=== PATIENT | male | born 1980 | race Caucasian/White ===

== ENCOUNTER → 2019-09-24 | Outpatient (CLI) | payer OTHER ==
[~2019-09-24] MED LIST: AZIT250 PO; CEPH500 PO; CLIN300 PO; CRUTCH4 USE; Colace100 MG PO; Crutch1 EACH MISC; DOXY100T53 PO; Flonase 0.05% N16 GM; HYDACE25S PR; HYDACE5 PO; HYDCOR2.5C PR; IBUP600 PO; LORA10 PO; MONT10T; MUPI2TO TOP; NAPR375 PO; NAPR500 PO; Nix Lice Treatm59 ML TOP; Norco 5-325 Ta1 EACH PO; PROM25 PO; RXANTBENOT AS; RXCEPH500 PO; RXCLIN PO; RXHYDACE PO; SULTRIDS PO; Sudogest30 MG PO
== END | disposition home or self-care (01) ==
LOC: LAB EV 16:44 → LAB SHORT 16:44
DX: L08.9 Local infection of the skin and subcutaneous tissue, unspecified (principal)
CPT/HCPCS: 87070; 87075; 87205

== ENCOUNTER 2021-01-11 23:05 | Emergency (ER) | payer OTHER ==
[~2021-01-11] VITALS: Ht 177.8 cm; Wt 81.7 kg
== END 2021-01-12 00:08 | disposition home or self-care (01) ==
LOC: ER 23:05
DX: Z02.89 Encounter for other administrative examinations (principal); F17.210 Nicotine dependence, cigarettes, uncomplicated; Z88.0 Allergy status to penicillin
CPT/HCPCS: 99283

== ENCOUNTER → 2025-01-12 | Outpatient (CLI) | payer OTHER ==
[2025-01-15 13:49] LABS: APTIMA MEDIA TYPE Urine; C. TRACHOMATIS BY TMA Negative (Negative); N. GONORRHOEAE BY TMA Negative (Negative); T. VAGINALIS BY TMA Negative (Negative)
[2025-01-15 15:47] LABS: HIV 1,2 COMBO ANTIGEN/ANTIBODY Negative (Negative)
[2025-01-15 17:00] LABS: HEPATITIS A ANTIBODY, IGM Negative (Negative); HEPATITIS C AB CIA INTERP High Pos (Negative); HEPATITIS C ANTIBODY CIA INDEX >11.00 IV
[2025-01-16 19:35] LABS: HCV QNT BY NAAT (IU/ML) Not Detected; HCV QNT BY NAAT (LOG IU/ML) Not Detected; HCV QNT BY NAAT INTERP Not Detected (Not Detected)
== END | disposition home or self-care (01) ==
LOC: LAB SHORT 11:49 → LAB 11:49
PROVIDERS: Nurse Practitioner Family
DX: Z11.3 Encounter for screening for infections with a predominantly sexual mode of transmission (principal); R30.0 Dysuria
CPT/HCPCS: 80074; 86592; 87077; 87086; 87186; 87389; 87491; 87522; 87591; 87661